=== PATIENT | male | born 1960 | race Hispanic/Latino ===

== ENCOUNTER 2017-11-28 17:15 | Observation (INO) | payer OTHER ==
[2017-11-28] MEDS ORDERED: Sodium Chloride 0.9% 500 ML IV STA (17:41)
[2017-11-28 18:21] LABS: BASO # 0.04 K/mm3 (0.0-2.0); BASO % 0.4 % (0.0-3.0); EOS # 0.2 (0.0-0.7); EOS % 1.9 % (1.5-5.0); GRAN # 6.57 (1.4-6.5); GRAN % 64.1 % (50.0-68.0); HEMOGLOBIN 17.7 g/dL (14.0-18.0); LYMPH # 2.8 (1.2-3.4); LYMPH % 27.2 % (22.0-35.0); MEAN CELL VOLUME 91.3 fl (80.0-105.0); MEAN CORPUSCULAR HEMOGLOBIN 31.9 pg (25.0-35.0); MEAN PLATELET VOLUME 11.4 fl (7.0-11.0); MONO # 0.7 (0.1-0.6); MONO % 6.4 % (1.0-6.0); RBC 5.54 10^6/uL (3.5-6.1); RED CELL DISTRIBUTION WIDTH 14.2 % (11.5-14.5); WHITE BLOOD COUNT 10.2 10^3/ul (4.5-11.0)
[2017-11-28 18:29] LABS: ALB/GLOB RATIO 1.4 (1.1-1.8); ALBUMIN 4.7 g/dL (3.0-4.8); ALT/SGPT 13 U/L (7-56); AST/SGOT 22 U/L (17-59); BLOOD UREA NITROGEN 12 mg/dL (7-21); CALCIUM 9.9 mg/dL (8.4-10.5); GFR NON-AFRICAN AMERICAN > 60; LIPASE 78 U/L (23-300)
[2017-11-28 18:39] LABS: TROPONIN I < 0.01 ng/mL
[2017-11-28] MEDS ORDERED: Iohexol 350 MG/100 ML VIAL ONE (18:47)
--- NOTE | 2017-11-28 18:54 | ED PDOC ---
Arrival/HPI - General Chief Complaint: GI Problem Time Seen by Provider: 11/28/17 17:40 Historian: Patient - History of Present Illness Narrative History of Present Illness (Text): 11/28/17 18:37 57yr old male presents today with headache, dizziness, nausea, vomiting and epigastric abdominal pain. pt admits to smoking. denies alcohol use. pt states he has been having on and off symptoms for 1 week but symptoms worsened over the past 2 days. pt c/o intermittent chest pain. denies fever/chills. no urinary symptoms. pt states he feels dizzy like he is going to pass out. pt denies cough. denies shortness of breath. no other complaints. Symptom Course: Intermittent, Worsening Past Medical History - Provider Review Nursing Documentation Reviewed: Yes - Travel History Have you recently traveled outside [place] w/in the past 3 mons?: No - Infectious Disease Hx of Infectious Diseases: None - Tetanus Immunization Tetanus Immunization: Unknown - Past Medical History Past Medical History: No Previous - Cardiac Hx Cardiac Disorders: No - Pulmonary Hx Respiratory Disorders: No - Neurological Hx Neurological Disorder: Yes Hx Dizziness: Yes - HEENT Hx HEENT Disorder: No - Renal Hx Renal Disorder: No - Endocrine/Metabolic Hx Endocrine Disorders: No - Hematological/Oncological Hx Blood Disorders: No - Integumentary Hx Dermatological Disorder: No - Musculoskeletal/Rheumatological Hx Musculoskeletal Disorders: No Hx Falls: Yes - Gastrointestinal Hx Gastrointestinal Disorders: Yes (POOR APPETITE SECONDARY TO ETOH ABUSE) Hx Gastroesophageal Reflux: Yes - Genitourinary/Gynecological Hx Genitourinary Disorders: Yes (URINARY FREQ,URGENCY) - Psychiatric Hx Psychophysiologic Disorder: Yes (ETOH ABUSE 2 BEERS AND 2 SHOTS OF VODKA DAILY. SMOKES 3O CIG A DAY.) Hx Substance Use: No - Past Surgical History Past Surgical History: No Previous - Anesthesia Hx Anesthesia: No - Suicidal Assessment Feels Threatened In Home Enviroment: No Family/Social History - Physician Review Nursing Documentation Reviewed: Yes Family/Social History: Unknown Family HX Smoking Status: Current Some Days Smoker Hx Alcohol Use: Yes (DRINKS 2 SHOTS OF VODKA AND 2 BEERS DAILY) Hx Substance Use: No Allergies/Home Meds Allergies/Adverse Reactions: Allergies No Known Allergies Allergy (Verified 04/10/16 18:54) Home Medications: Home Meds Medication Instructions Recorded Confirmed No Known Home Med 04/10/16 04/10/16 Review of Systems - Review of Systems Constitutional: Fatigue. absent: Fevers Respiratory: absent: SOB, Cough Cardiovascular: absent: Chest Pain, Palpitations Gastrointestinal: Abdominal Pain, Nausea, Vomiting. absent: Diarrhea Genitourinary Male: absent: Dysuria, Frequency Musculoskeletal: Back Pain. absent: Neck Pain Skin: absent: Rash, Pruritis Neurological: Headache, Dizziness Psychiatric: absent: Anxiety, Depression Physical Exam Vital Signs Reviewed: Yes Vital Signs Temp Pulse Resp BP Pulse Ox 11/28/17 19:37 99.1 F 68 18 155/86 H 96 11/28/17 17:35 98.1 F 90 18 154/99 H 99 Temperature: Afebrile Blood Pressure: Hypertensive Pulse: Regular Respiratory Rate: Normal Appearance: Positive for: Well-Appearing, Non-Toxic, Comfortable Pain Distress: None Mental Status: Positive for: Alert and Oriented X 3 Finger Stick Blood Glucose: 115 - Systems Exam Head: Present: Atraumatic Pupils: Present: PERRL Extroacular Muscles: Present: EOMI Mouth: Present: Moist Mucous Membranes Neck: Present: Normal Range of Motion Respiratory/Chest: Present: Clear to Auscultation, Good Air Exchange. No: Respiratory Distress, Accessory Muscle Use Cardiovascular: Present: Regular Rate and Rhythm, Normal S1, S2. No: Murmurs Abdomen: Present: Tenderness (+ minimal epigastric tenderness). No: Distention , Peritoneal Signs, Rebound, Guarding Back: Present: Normal Inspection. No: CVA Tenderness, Midline Tenderness, Paraspinal Tenderness Upper Extremity: Present: Normal ROM Lower Extremity: Present: Normal ROM, Neurovascularly Intact Neurological: Present: GCS=15, Speech Normal Skin: Present: Warm, Dry, Normal Color. No: Rashes Psychiatric: Present: Alert, Oriented x 3 Medical Decision Making ED Course and Treatment: 11/28/17 18:57 57-year-old male with a history of hypertension presents with dizziness and epigastric pain and chest pain CBC within normal limits CMP within normal limits Troponin within normal limits EKG normal sinus rhythm at [address] elevations normal axis normal intervals Chest x-ray no effusion no cardiomegaly CAT scan of the head:FINDINGS: Brain: Mild age-appropriate cerebral volume loss. No hemorrhage. No significant white matter disease. No edema. Normal yun white matter interfaces are present. Ventricles: Unremarkable. No ventriculomegaly. Bones/joints: Unremarkable. No acute fracture. Soft tissues: Unremarkable. Sinuses: Unremarkable as visualized. No acute sinusitis. Mastoid air cells: Unremarkable as visualized. No mastoid effusion. IMPRESSION: Normal head/brain CT. CAT scan of the abdomen and pelvis:FINDINGS: Lung bases: Unremarkable. No mass. No consolidation. ABDOMEN: Liver: Unremarkable. No mass. Gallbladder and bile ducts: Unremarkable. No calcified stones. No ductal dilation. No significant wall thickening. Pancreas: Unremarkable. No mass. No ductal dilation. Spleen: Unremarkable. No splenomegaly. Adrenals: Unremarkable. No mass. Kidneys and ureters: Unremarkable. No solid mass. No hydronephrosis. Stomach and bowel: Small amount of formed stool throughout the colon likely within physiologic limits. Bowel loops appear within normal limits, no signs of wall thickening, mucosal edema, or bowel distention. PELVIS: Appendix: A normal appendix seen in the right lower quadrant. Bladder: Unremarkable. No mass. Reproductive: Unremarkable as visualized. ABDOMEN and PELVIS: Intraperitoneal space: Unremarkable. No free air. No significant fluid collection. Bones/joints: No acute fracture. No dislocation. Soft tissues: Unremarkable. Vasculature: The aorta demonstrates severe atherosclerotic calcification and ectasia. No abdominal aortic aneurysm. Lymph nodes: Unremarkable. No enlarged lymph nodes. IMPRESSION: No acute findings or significant abnormalities are noted within the abdomen and pelvis. Incidental and other non-acute findings are described above. Patient reassessment: pt feeling better; asa added, librium added 11/28/17 21:[address] Jeovanny Milner; accepts observational status admission for chest pain/dizziness, near syncope. all aspects of this case were discussed the attending of record. impression; chest pain, dizziness, abdominal pain. admit observational status to tele. Reassessment Condition: Re-examined, Improved - Lab Interpretations Lab Results: 11/28/17 18:00 11/28/17 18:00 Lab Results 11/28/17 19:47: Urine Color Light yellow, Urine Appearance Clear, Urine pH 6.5, Ur Specific [place] <= 1.005, Urine Protein Negative, Urine Glucose (UA) Negative, Urine Ketones Negative, Urine Blood Negative, Urine Nitrate Negative, Urine Bilirubin Negative, Urine Urobilinogen 1.0 H, Ur Leukocyte Esterase Negative 11/28/17 18:00: WBC 10.2 D, RBC 5.54, Hgb 17.7, Hct 50.6, MCV 91.3, MCH 31.9, MCHC 35.0, RDW 14.2, Plt Count 215, MPV 11.4 H, Gran % 64.1, Lymph % (Auto) 27.2 , [place] % (Auto) 6.4 H, Eos % (Auto) 1.9, Baso % (Auto) 0.4, Gran # 6.57 H, Lymph # (Auto) 2.8, [place] # (Auto) 0.7 H, Eos # (Auto) 0.2, Baso # (Auto) 0.04 11/28/17 18:00: Sodium 144, Potassium 4.3, Chloride 104, Carbon Dioxide 28, Anion Gap 16, BUN 12, Creatinine 0.9, Est GFR ( Amer) > 60, Est GFR (Non- Af Amer) > 60, Random Glucose 113 H, Calcium 9.9, Total Bilirubin 0.4, AST 22, ALT 13, Alkaline Phosphatase 85, Lactate Dehydrogenase 377, Total Creatine Kinase 77, Troponin I < 0.01, Total Protein 7.9, Albumin 4.7, Globulin 3.2, Albumin/Globulin Ratio 1.4, Lipase 78 - RAD Interpretation Radiology Orders: 11/28/17 17:40 HEAD W/O CONTRAST [CT] Stat CHEST ONE VIEW [RAD] Stat 11/28/17 18:25 ABD & PELVIS IV CONTRAST ONLY [CT] Stat - Medication Orders Current Medication Orders: Discontinued Medications Sodium Chloride (Sodium Chloride 0.9%) 500 mls @ 999 mls/hr IV .Q31M STA Stop: 11/28/17 18:11 Last Admin: 11/28/17 18:07 Dose: 999 mls/hr eMAR Start Stop Document 11/28/17 18:07 EWO (Rec: 11/28/17 18:07 [id number] [id number]) Intravenous Solution Start Date 11/28/17 Start Time 18:07 End Date 11/28/17 End time 18:37 Total Infusion Time 30 Ondansetron HCl (Zofran Inj) 4 mg IVP STAT STA Stop: 11/28/17 18:40 Last Admin: 11/28/17 19:29 Dose: 4 mg IVP Administration Document 11/28/17 19:29 RG (Rec: 11/28/17 19:30 RG [id number]) Charges for Administration # of IVP Administrations 1 Pantoprazole Sodium (Protonix Inj) 40 mg IVP STAT STA Stop: 11/28/17 18:40 Last Admin: 11/28/17 19:29 Dose: 40 mg IVP Administration Document 11/28/17 19:29 JOSE (Rec: 11/28/17 19:29 [id number] Charges for Administration # of IVP Administrations 1 Disposition/Present on Arrival - Present on Arrival Any Indicators Present on Arrival: No History of DVT/PE: No History of Uncontrolled Diabetes: No Urinary Catheter: No History of Decub. Ulcer: No History Surgical Site Infection Following: None - Disposition Have Diagnosis and Disposition been Completed?: Yes Diagnosis: Chest pain, Abdominal pain, Dizziness Disposition: HOSPITALIZED Disposition Time: 21:17 Patient Plan: Observation Patient Problems: Current Active Problems Problem Status Onset Abdominal pain Acute Chest pain Acute Dizziness Acute Condition: FAIR Discharge Instructions (ExitCare): Chest Pain (ED) Referrals: Jeovanny Milner MD [Primary Care Provider] - Follow up with primary Forms: [employer] (Bhutanese)
[2017-11-28 20:13] LABS: PH,URINE 6.5 (4.7-8.0); URINE APPEARANCE CLEAR (CLEAR); URINE BILIRUBIN NEGATIVE (NEGATIVE); URINE BLOOD NEGATIVE (NEGATIVE); URINE COLOR LIGHT YELLOW (YELLOW); URINE GLUCOSE (UA) NEGATIVE (NEGATIVE); URINE LEUKOCYTE ESTERASE NEGATIVE Leu/uL (NEGATIVE); URINE PROTEIN NEGATIVE mg/dL (<30 mg/dL)
[2017-11-28] MEDS: Sucralfate 1 gm/10 ml Oral Susp UD PO SCH (22:09)
[2017-11-29 00:16] VITALS: BMI 24.2
[2017-11-29] MEDS: Sucralfate 1 gm/10 ml Oral Susp UD PO SCH ×2 (05:38→12:06)
--- NOTE | 2017-11-29 06:07 | CT ---
Date of service: 11/28/2017 PROCEDURE: CT Abdomen and Pelvis without intravenous contrast HISTORY: abd pain COMPARISON: None. TECHNIQUE: Technique. Contrast dose: Radiation dose: Total exam DLP = mGy-cm. This CT exam was performed using one or more of the following dose reduction techniques: Automated exposure control, adjustment of the mA and/or kV according to patient size, and/or use of iterative reconstruction technique. FINDINGS: LOWER THORAX: Mild ground-glass density interstitial changes. LIVER: Unremarkable. No gross lesion or ductal dilatation. GALLBLADDER AND BILE DUCTS: Unremarkable. PANCREAS: Unremarkable. No gross lesion or ductal dilatation. SPLEEN: Unremarkable. ADRENALS: Unremarkable. No mass. KIDNEYS AND URETERS: Unremarkable. No hydronephrosis. No solid mass. VASCULATURE: Unremarkable. No aortic aneurysm. BOWEL: Unremarkable. No obstruction. No gross mural thickening. APPENDIX: Unremarkable. Normal appendix. PERITONEUM: Unremarkable. No free fluid. No free air. LYMPH NODES: Unremarkable. No enlarged lymph nodes. BLADDER: Unremarkable. REPRODUCTIVE: Unremarkable. BONES: No acute fracture. OTHER FINDINGS: None. IMPRESSION: Mild ground-glass density interstitial changes.
[2017-11-29 06:30] VITALS: O2SAT 97
--- NOTE | 2017-11-29 07:22 | CT ---
Date of service: 11/28/2017 PROCEDURE: CT HEAD WITHOUT CONTRAST. HISTORY: headache COMPARISON: None available. TECHNIQUE: Axial computed tomography images were obtained through the head/brain without intravenous contrast. Radiation dose: Total exam DLP = mGy-cm. This CT exam was performed using one or more of the following dose reduction techniques: Automated exposure control, adjustment of the mA and/or kV according to patient size, and/or use of iterative reconstruction technique. FINDINGS: HEMORRHAGE: No intracranial hemorrhage. BRAIN: No mass effect or edema. No atrophy or chronic microvascular ischemic changes. VENTRICLES: Unremarkable. No hydrocephalus. CALVARIUM: Unremarkable. PARANASAL SINUSES: Unremarkable as visualized. No significant inflammatory changes. MASTOID AIR CELLS: Unremarkable as visualized. No inflammatory changes. OTHER FINDINGS: None. IMPRESSION: Normal CT of the Head.
[2017-11-29 07:29] LABS: BASO # 0.03 K/mm3 (0.0-2.0); BASO % 0.4 % (0.0-3.0); EOS # 0.1 (0.0-0.7); EOS % 1.8 % (1.5-5.0); GRAN # 4.27 (1.4-6.5); GRAN % 63.4 % (50.0-68.0); HEMOGLOBIN 15.7 g/dL (14.0-18.0); LYMPH # 1.9 (1.2-3.4); LYMPH % 27.4 % (22.0-35.0); MEAN CORPUSCULAR HEMOGLOBIN 31.3 pg (25.0-35.0); MEAN CORPUSCULAR HGB CONC 34.4 g/dl (31.0-37.0); MEAN PLATELET VOLUME 11.1 fl (7.0-11.0); MONO # 0.5 (0.1-0.6); RBC 5.02 10^6/uL (3.5-6.1); RED CELL DISTRIBUTION WIDTH 14.3 % (11.5-14.5); WHITE BLOOD COUNT 6.7 10^3/ul (4.5-11.0)
[2017-11-29 07:42] LABS: ALB/GLOB RATIO 1.4 (1.1-1.8); ALBUMIN 3.6 g/dL (3.0-4.8); ALT/SGPT 21 U/L (7-56); AST/SGOT 15 U/L (17-59); BLOOD UREA NITROGEN 10 mg/dL (7-21); CALCIUM 9.6 mg/dL (8.4-10.5); GFR NON-AFRICAN AMERICAN > 60
[2017-11-29 07:48] LABS: TROPONIN I < 0.01 ng/mL
--- NOTE | 2017-11-29 10:12 | RAD ---
Date of service: 11/28/2017 PROCEDURE: CHEST RADIOGRAPH, 1 VIEW HISTORY: chest pain COMPARISON: None available. FINDINGS: LUNGS: Clear. PLEURA: No pneumothorax or pleural fluid seen. CARDIOVASCULAR: Normal. OSSEOUS STRUCTURES: No significant abnormalities. VISUALIZED UPPER ABDOMEN: Normal. OTHER FINDINGS: None. IMPRESSION: No active disease.
--- NOTE | 2017-11-29 11:23 | CARD ---
APPROVED REPORT Date of service: 11/28/2017 EKG Measurement Heart [id number] <Conclusion> Normal sinus rhythm Possible Left atrial enlargement Borderline ECG
[2017-11-29 12:50] VITALS: BP 124/78; PULSE 52; RESP 18; TEMP 98.4
[2017-11-30] MEDS ORDERED: Pantoprazole 40 mg EC Tab PO SCH (07:30)
== END 2017-11-29 13:15 | disposition home or self-care (01) ==
LOC: ED 17:15 → ERH 21:14 → 2RSO 22:44
PROVIDERS: ADMIT Internal Medicine; ATTEND Internal Medicine
DX: R07.9 Chest pain, unspecified (principal); R42 Dizziness and giddiness; R10.9 Unspecified abdominal pain; F17.200 Nicotine dependence, unspecified, uncomplicated; K21.9 Gastro-esophageal reflux disease without esophagitis
CPT/HCPCS: 36415; 70450; 71045; 74177; 80053; 80320; 81003; 82550; 83615; 83690; 84484; 85025; 93005; 96374; 96375; 96376; 99285; C9113; G0378; J2405; J7040; Q9967